=== PATIENT | female | born 1940 | race Caucasian/White ===

== ENCOUNTER → 2018-05-17 | Outpatient (CLI) | payer OTHER | END | disposition home or self-care (01) | LOC: RAD 11:46 | DX: M54.5 Low back pain (principal) ==

== ENCOUNTER 2019-07-03 13:11 | Outpatient (CLI) | payer OTHER | END 2019-07-03 13:18 | disposition home or self-care (01) | LOC: NUCLEAR 13:11 | DX: M81.0 Age-related osteoporosis without current pathological fracture (principal); N85.9 Noninflammatory disorder of uterus, unspecified ==

== ENCOUNTER 2022-01-27 11:11 | Outpatient (CLI) | payer OTHER | END 2022-01-27 14:45 | disposition home or self-care (01) | LOC: LAB 11:11 | DX: E03.8 Other specified hypothyroidism (principal); E83.50 Unspecified disorder of calcium metabolism ==

== ENCOUNTER → 2022-01-27 12:55 | Outpatient (CLI) | payer OTHER | END | disposition home or self-care (01) | LOC: NUCLEAR 12:55 | DX: M81.0 Age-related osteoporosis without current pathological fracture (principal) ==

== ENCOUNTER 2022-01-31 12:48 | Outpatient (CLI) | payer OTHER | END 2022-01-31 12:53 | disposition home or self-care (01) | LOC: SONOGRAMA 12:48 | DX: E04.1 Nontoxic single thyroid nodule (principal) ==

== ENCOUNTER 2024-06-20 12:16 | Emergency (ER) | payer OTHER ==
[~2024-06-20] VITALS: Ht 157.5 cm; Wt 72.6 kg
[2024-06-20] MEDS ORDERED: ZESTRIL2.5 MG (12:36)
[2024-06-20] MEDS ORDERED: LEVOTHYROXINE25 MCG (12:36)
[2024-06-20] MEDS ORDERED: CEFTRIAXONE SODIUM 1,000 MG VIAL IM STA (13:32)
[2024-06-20] MEDS ORDERED: DUI500 PO (15:05)
== END 2024-06-20 15:11 | disposition home or self-care (01) ==
LOC: ER 12:17
DX: L03.116 Cellulitis of left lower limb (principal); R21 Rash and other nonspecific skin eruption; I10 Essential (primary) hypertension
CPT/HCPCS: 96372; 99282; J0696

== ENCOUNTER 2024-11-04 21:16 | Emergency (ER) | payer OTHER ==
[~2024-11-04] VITALS: Ht 157.5 cm; Wt 63.5 kg
[~2024-11-04 21:16] MED LIST: DUI500 PO; LEVOTHYROXINE25 MCG; ZESTRIL2.5 MG
[2024-11-04] MEDS ORDERED: KETOROLAC TROMETHAMINE 60 MG VIAL IM ONE (22:30)
== END 2024-11-05 03:18 | disposition home or self-care (01) ==
LOC: ER 21:16
DX: M13.0 Polyarthritis, unspecified (principal); M54.9 Dorsalgia, unspecified; I10 Essential (primary) hypertension; E03.8 Other specified hypothyroidism
CPT/HCPCS: 72131; 72192; 96372; 99284; J1885